=== PATIENT | female | born 1985 | race Caucasian/White ===

== ENCOUNTER 2018-09-28 15:58 | Emergency (ER) | payer OTHER ==
[~2018-09-28] VITALS: Ht 167.6 cm; Wt 100.0 kg
[2018-09-28 16:03] VITALS: Ht 167.6 cm; Wt 100.0 kg
--- NOTE | 2018-09-28 17:23 | ERD ---
ER Documentation Chief Complaint Chief Complaint Complains of a foreign body in the vagina HPI 32-year-old female presenting with abnormal vaginal discharge for 1 month. She went to clinic a few weeks ago and was told she had a yeast infection, treated with fluconazole. She was also told that she had chlamydia and was treated with oral medications but denied declined getting a "shot". She is sexually active with one partner and states that she always uses condoms. She is complaining of itching, greenish discharge. She also has pain with intercourse. Denies abdo daniela pain, fever, chills, nausea or vomiting. No diarrhea or constipation. No melena or hematochezia. ROS All systems reviewed and are negative except as per history of present illness. Allergies Allergies: Coded Allergies: No Known Allergy (Unverified , 09/28/18) PMhx/Soc Medical and Surgical Hx: pt denies Surgical Hx Hx Psychiatric Problems: Yes (Anxiety) Hx Miscellaneous Medical Probl: No Hx Alcohol Use: Yes (Occasionally) Hx Substance Use: No Hx Tobacco Use: No Smoking Status: Never smoker FmHx Family History: No diabetes Physical Exam Vitals Vital Signs Date Temp Pulse Resp B/P (MAP) Pulse Ox O2 O2 Flow FiO2 Time Delivery Rate 09/28/18 98.0 81 17 117/58 98 Room Air 21:01 (77) 09/28/18 98.5 77 20 120/95 98 16:03 (103) Physical Exam Const: No acute distress Head: Atraumatic Eyes: Normal Conjunctiva ENT: Normal External Ears, Nose and Mouth. Posterior oropharynx normal without exudates Neck: Supple, no lymphadenopathy Resp: Clear to auscultation bilaterally Cardio: Regular rate and rhythm, no murmurs Abd: Soft, non tender, non distended. Normal bowel sounds Pelvic Exam: Machine Stoppage Frequency Checker present Abdomen: Nontender External Genitalia: Normal Skin Speculum: Normal vaginal mucosa, moderate amount of yellow cervical discharge. Cervix appears normal Bimanual: No adnexal masses or tenderness, No CMT Skin: No petechiae or rashes Back: No midline or flank tenderness Ext: No cyanosis, or edema Neur: Awake and alert Psych: Normal Mood and Affect Results 24 hrs Laboratory Tests Test 09/28/18 16:45 09/28/18 16:54 09/28/18 17:04 Urine Color YELLOW Urine Clarity SLIGHTLY CLOUDY Urine pH 5.0 Urine Specific [place] 1.019 Urine Ketones NEGATIVE mg/dL Urine Nitrite NEGATIVE mg/dL Urine Bilirubin NEGATIVE mg/dL Urine Urobilinogen NEGATIVE mg/dL Urine Leukocyte Esterase NEGATIVE Zeeshan/ul Urine Microscopic RBC 0 /HPF Urine Microscopic WBC 2 /HPF Urine Squamous FEW /HPF Epithelial Cells Urine Bacteria FEW /HPF Urine Mucus FEW /HPF Urine Hemoglobin 1+ mg/dL Urine Glucose NEGATIVE mg/dL Urine Total Protein NEGATIVE mg/dl POC Beta HCG, Qualitative POSITIVE Chlamydia trachomatis NOT DETECTED RNA (TMA) Chlamydia/GC Comment SEE NOTE Neisseria gonorrhoeae NOT DETECTED RNA (TMA) Serum HCG, Qualitative POSITIVE Beta HCG, Quantitative 40834.0 mIU/ml Current Medications Medications Dose Sig/Will Start Time Status Last (Trade) Ordered Route PRN Stop Time Admin Dose Reason Admin 1,000 mg ONCE STAT 09/28/18 DC 09/28/18 Azithromycin PO 19:07 19:53 (Zithromax) 09/28/18 19:08 Ceftriaxone 250 mg ONCE STAT 09/28/18 DC 09/28/18 Sodium IM 19:07 19:53 (Rocephin) 09/28/18 19:08 Procedures/MDM EMERGENT LABS AND DIAGNOSTIC STUDIES: Lab Results above were reviewed and interpreted by me. UA: no evidence of infection Urine positive Wet mount shows bacteria and PMNs, no trichomonas, no Gardnerella, no yeast Radiology Results as interpreted by Radiology below were reviewed by Desirae Chiu MD: US Pelvic: Normal IUP 8 weeks gestational age with small subchorionic hemorrhage Initial Nursing notes reviewed. Previous Medical Records requested via the Electronic Health Record. EMERGENCY DEPARTMENT COURSE / MEDICAL DECISION MAKING: Patient is presenting with pelvic discomfort. She is afebrile and well- appearing on exam with no abdominal tenderness. I do not suspect acute surgical abdomen. Low suspicion for ovarian torsion. Abdominal ultrasound was done showing an 8-week with a small subchorionic hemorrhage. Pelvic rest was recommended. There appears to be no evidence of yeast, Gardnerella or trichomonas but she does have bacteria on her wet mount. I recommended treatment for gonorrhea and chlamydia while the STD tests are pending. Patient is agreeable to this plan. She was given an injection of ceftriaxone and oral azithromycin. No evidence of UTI at this time. Follow-up with [facility] was discussed. Return precautions given. Patient's blood pressure was elevated (>120/80) but appears stable without evidence of hypertension emergency or urgency. The patient was counseled about the risks of hypertension and urged to pursue outpatient monitoring and therapy within a week with their primary care physician. Departure Diagnosis: Primary Impression: Pelvic pain Additional Impression: Abnormal vaginal fluids Condition: Stable EKLIZETTE MACKEY MD September 28, 2018 17:23
[2018-09-28] MEDS ORDERED: CEFTRIAXONE 250 MG INJ IM STA (19:07)
[2018-09-28] MEDS ORDERED: AZITHROMYCIN 250 MG TAB PO STA (19:07)
[2018-09-28 21:01] VITALS: BP 117/58; PULSE 81; RESP 17
== END 2018-09-28 21:01 | disposition home or self-care (01) ==
LOC: E/R 15:58 → FTE 21:01
DX: O34.61 Maternal care for abnormality of vagina, first trimester (principal); R10.2 Pelvic and perineal pain; Z3A.08 8 weeks gestation of pregnancy
CPT/HCPCS: 76801; 76817; 81001; 81025; 84702; 84703; 87086; 87210; 87591; 96372; 99285; J0696